=== PATIENT | female | born 1955 | race African-American/Black ===

== ENCOUNTER 2020-06-12 08:41 | Outpatient (CLI) | payer MEDICARE, MEDICAID ==
[~2020-06-12 08:41] MED LIST: ALBU18HF2 IH; ALBU8.5H8 INH; AMA100C PO; BECL8.7A7 IH; BENZ1TAB7 PO; BUDE10.2 INH; COU1T PO; DILT120C88 PO; DULO60CA65 PO; GABA600T13 PO; LAMO100T2 PO; METF500T PO; OMEP40CA13 PO; QUET150T2 PO; QUET50TA15 PO; VENL-190 PO; VENL150C58 PO; VENL150T3 PO; WARF10TA50 PO; ZOLP10TA5 PO; coumadin PO
[2020-06-12 09:11] LABS: TOTAL HEMOGLOBIN 11.5 G/dl (12.0-16.0)
== END 2020-06-12 23:59 | disposition home or self-care (01) ==
LOC: RT 08:41
PROVIDERS: ATTEND Internal Medicine Cardiovascular Disease
DX: J44.9 Chronic obstructive pulmonary disease, unspecified (principal); R06.02 Shortness of breath; D64.9 Anemia, unspecified
CPT/HCPCS: 85018; 94010; 94727; 94729

== ENCOUNTER 2020-07-10 12:34 | Emergency (ER) | payer MEDICARE, MEDICAID ==
[~2020-07-10] VITALS: Ht 167.6 cm; Wt 86.4 kg
--- NOTE | 2020-07-10 13:28 | NUR ---
pt asked to lay down because shes feeling hot and sweaty, i offered pt to move to [facility] away from the heater pr to take off the blanket she has wrapped around her. she refused to do either and then asked how much longer till she is seen. i explained to the pt that we are very busy but she will be seen as soon as possiable and then gave her some water to drink.
== END 2020-07-10 14:38 | disposition home or self-care (01) ==
LOC: ER 12:35
DX: B34.9 Viral infection, unspecified (principal); Z20.828 Contact with and (suspected) exposure to other viral communicable diseases; I10 Essential (primary) hypertension; E11.9 Type 2 diabetes mellitus without complications; F12.90 Cannabis use, unspecified, uncomplicated; Z86.711 Personal history of pulmonary embolism; Z90.710 Acquired absence of both cervix and uterus; Z98.890 Other specified postprocedural states; Z79.01 Long term (current) use of anticoagulants; Z79.899 Other long term (current) drug therapy
CPT/HCPCS: 36415; 87635; 99283